=== PATIENT | female | born 1985 | race Caucasian/White ===

== ENCOUNTER 2020-04-04 14:46 | Outpatient (CLI) | payer OTHER, SELFPAY ==
[2020-04-04 15:09] LABS: Hematocrit 38.7 % (35.0-49.0); Hemoglobin 12.8 g/dL (12.0-15.0); Mean Corpuscular HGB Conc 33.1 g/dL (32.0-36.0); Mean Corpuscular Hemoglobin 29.7 pg (27.0-31.0); Mean Corpuscular Volume 89.8 fL (78.0-102.0); Mean Platelet Volume 9.6 fl (9.2-11.8); Platelet Count Result 216 K/mm3 (150-420); Red Blood Count 4.31 M/mm3 (4.20-5.40); Red Cell Distribution Width 12.6 % (11.6-14.4); White Blood Count 6.3 K/mm3 (4.8-10.8)
[2020-04-04 15:50] LABS: Alanine Aminotransferase 24 U/L (14-59); Albumin Level 4.1 g/dL (3.4-5.0); Alkaline Phosphatase 50 U/L (46-116); Anion Gap 11 mmol/L (8-16); Aspartate Amino Transferase 18 U/L (15-37); Bilirubin,Total 0.3 mg/dL (0.00-1.00); Blood Urea Nitrogen 18 mg/dL (7-18); Calcium 8.9 mg/dL (8.5-10.1); Carbon Dioxide 26 mmol/L (21-32); Chloride 102 mmol/L (98-108); Estimated Glomerular Filt Rate > 60; Glucose 95 mg/dL (70-99); Osmolality Calculated 289 mOsm/kg (285-295); Potassium 4.1 mmol/L (3.5-5.1); Sodium 139 mmol/L (136-145); Thyroid Stimulating Hormone 1.15 uIU/mL (0.36-3.74); Total Protein 8.1 g/dL (6.4-8.2)
== END 2020-04-04 14:47 | disposition home or self-care (01) ==
LOC: CHSLAB 14:49
PROVIDERS: PCP Physician Assistant; Visit Provider Physician Assistant
DX: R53.82 Chronic fatigue, unspecified (principal)
CPT/HCPCS: 36415; 80053; 84443; 85027

== ENCOUNTER 2021-02-21 01:52 | Day surgery (SDC) | payer OTHER, SELFPAY ==
[2021-02-15 14:05] VITALS: BMI 25.3
[2021-02-21] VITALS (10 sets, daily range): BP systolic 85–128; BP diastolic 60–75; PULSE 61–100; RESP 12–18; TEMP 36.2–36.4; O2SAT 95–100
[2021-02-21] MEDS: LACTATED RINGERS 1,000 ML 30 ML IV CONT (06:50)
[2021-02-21] MEDS: KETOROLAC 15 MG/ML VIAL (*BKC) IV PUSH (06:52)
[2021-02-21] MEDS: ACETAMINOPHEN 500 MG TABLET 1000 MG PO (06:52)
--- NOTE | 2021-02-21 07:11 | WPDANESEPPF ---
Anes - Initial Pre Proc Eval Procedure: Operation Date: 02/21/21 07:30 Proposed Procedures p Laparoscopic Left Ovarian Cystectomy - Ingrid Ramírez MD Date/Time: 02/21/21 07:11 Surgeon: Ingrid Ramírez MD Pre Op Diagnosis: hemorrhaghic cyst of ovary Patient Data Age: 35 Gender: F Height: 1.64 m Weight: 68 kg Allergies Allergy/AdvReac Type Severity Reaction Status Date / Time Sulfa (Sulfonamide Allergy Swelling Verified 02/15/21 13:59 Antibiotics) Home Medications Medication Instructions Recorded Confirmed Type amitriptyline 25 mg PO HS 02/15/21 02/15/21 History buspirone 5 mg PO BID 02/15/21 02/15/21 History methadone 42 mg PO DAILY 02/15/21 02/15/21 History Patient hx anesthesia problems: none Family hx anesthesia problems: none Results Review: All pre-operative results and documents have been reviewed as part of the pre-operative evaluation. [facility] Past Medical History Medical History Opioid dependence Family History Family History Father Diabetes mellitus Family history of hypercholesterolemia Social History Social History Smoking packs per day: 1 Smoking cigarettes per day: 20.0 Years smoked: 11 Smoking pack-years: 11.00 Smoking status: Current every day smoker Tobacco type: cigarettes Alcohol intake: never Substance use: former Substance use type: heroin Other substance usage details: USED HEROIN OFF AND ON FOR 6-7 YEARS---TAPERING OFF METHADONE NOW Last use: 02/04/15 Living arrangements: with family Additional living arrangements comments: DAUGHTER Spiritual care concerns: No Anes - Eval Final PreProcedure Day of Procedure 02/21/21 07:11 Patient weight: normal Heart: regular rate and rhythm Lungs: decreased breath sounds Airway: Mallampati scale class III Neurological: alert and oriented Last oral intake: >/= 8 hours ASA classification: III Emergent: no Anesthetic plan: proceed Anesthesia type and monitoring: general ETT and standard monitoring Results Review: All pre-operative results and documents have been reviewed as part of the pre-operative evaluation. Informed Consent: The patient's anesthetic plan and its attendant risks and benefits were discussed with the patient/family/POA. Questions were solicited and answers provided to the satisfaction of the patient/family/POA.
--- NOTE | 2021-02-21 07:16 | WPDHPUPDATE1 ---
History and Physical Update Update Date/Time: 02/21/21 07:16 History and Physical has been reviewed, including an updated exam of the patient. There are NO changes in the patient's condition. Risks, benefits, and alternatives have been discussed and questions answered. Patient agrees to proceed with procedure.
[2021-02-21] MEDS: SCOPOLAMINE 1.5 MG PATCH TRANSDERM (07:24)
--- NOTE | 2021-02-21 08:15 | W.PM.PROC2 ---
Procedure Note - Detailed Date of Procedure 02/21/21 Pre-op Diagnosis hemorrhaghic cyst of ovary Post-op Diagnosis same (Pelvic lesion-likely endometriosis) Procedure Performed Left Ovarian Cystectomy, fulguration of endometriosis. Surgeon Ingrid Ramírez MD Anesthesia general Indications Pelvic pain Findings deep posterior cul de sac and pelvic wall lesions - likely endometriosis left ovarian cyst Description of Procedure The patient was taken to the operating room. She was prepped and draped in the dorsal lithotomy position after induction general anesthesia. A 5 mm incision was made with a scalpel on the abdominal skin in the left upper quadrant of the abdomen. A 5 mm trocar was inserted into the intra-abdominal cavity under direct visualization the scope. In the same fashion a 5 mm left lower quadrant trocar was inserted and a 5 mm infraumbilical trocar was insert. Resection of left ovarian cyst was performed. Was done with sharp and blunt dissection cut surface was cauterized. Fulguration of a deep posterior cul-de-sac lesion was performed. Also, on the right pelvic sidewall near the ureter a small hemorrhagic lesion was cauterized there to. It was fulgurated with bipolar cautery as was the posterior cul-de-sac lesion. The pelvis was irrigated. The pneumoperitoneum was reduced. The trocars were removed. Skin was closed with subcuticular 4 micro. The patient's incisions were covered with Dermabond. She was taken recovery room in stable condition. Sponge lap and needle counts were correct x2. Estimated Blood Loss 10 Pathology yes Complications No immediate complications Condition stable Disposition same day
[2021-02-21] MEDS: HYDROmorphone HCL INJ (*CRX) 1 MG/ML SYR IV PUSH ×4 (08:43→09:28)
[2021-02-21] MEDS: oxyCODONE HCL (*CRX) 5 MG TAB IR PO (09:59)
== END 2021-02-21 10:47 | disposition home or self-care (01) ==
PROVIDERS: PCP Physician Assistant; Visit Provider Obstetrics & Gynecology
PROC: (CPT 49320; principal; 2021-02-21 07:30)
DX: N83.02 Follicular cyst of left ovary (principal); N73.6 Female pelvic peritoneal adhesions (postinfective); N80.3 Endometriosis of pelvic peritoneum; F11.20 Opioid dependence, uncomplicated; F17.210 Nicotine dependence, cigarettes, uncomplicated
CPT/HCPCS: 58662; 88305; A9270; J1100; J1170; J1885; J2250; J2270; J2405; J2704; J2710; J7030; J7120

== ENCOUNTER 2022-03-28 20:13 | Emergency (ER) | payer OTHER, SELFPAY ==
[2022-03-28 20:40] VITALS: BP 111/61; PULSE 75; RESP 16; TEMP 37; O2SAT 99
--- NOTE | 2022-03-28 21:31 | ED.DENTAL ---
HPI - Dental/Oral General Chief complaint: Dental/Oral Stated complaint: dry socket Time Seen by Provider: 03/28/22 20:16 Source: patient and RN notes reviewed Mode of arrival: ambulatory Limitations: no limitations History of Present Illness Complaint: tooth pain Location: Tooth # (32) Onset (ago): day(s) (2) Duration: constant Severity: mild Severity scale (1-10): 5 Relieving factors: NSAIDs Exacerbating factors: chewing Context: history of dental caries Treatment prior to arrival: none Related Data Home Medications Medication Instructions Recorded Confirmed amoxicillin 500 mg capsule 500 mg PO BID 03/28/22 03/28/22 buspirone 10 mg tablet 10 mg PO DAILY 03/28/22 03/28/22 Allergies Allergy/AdvReac Type Severity Reaction Status Date / Time No Known Allergies Allergy Verified 03/28/22 21:04 Review of Systems Review of Systems: All systems reviewed & are unremarkable except as noted in HPI and below Constitutional: Constitutional: Reports no additional constitutional complaints Eyes: Eyes: Reports no additional eye complaints ENT: Reports system reviewed and no additional complaints, except as documented Cardiovascular: Cardiovascular: Reports no additional cardiovascular complaints Respiratory: Respiratory: Reports no additional respiratory complaints Gastrointestinal: Gastrointestinal: Reports no additional gastrointestinal complaints Genitourinary: Genitourinary: Reports no additional female genitourinary complaints Musculoskeletal: Musculoskeletal: Reports no additional musculoskeletal complaints Integumentary/Breasts: Skin/Breast: Reports system reviewed and no additional complaints, except as docu Neurologic: Reports system reviewed and no additional complaints, except as documented Psychiatric: Psychiatric: Reports no additional psychiatric complaints Endocrine: Endocrine: Reports no additional endocrine complaints Hematologic/Lymphatic: Hematologic/Lymphatic: Reports no additional hematologic/lymphatic complaints Allergic/Immunologic: Allergic/Immunologic: Reports no additional allergic/immunologic complaints [facility] Past Medical History Medical History (Updated 03/29/22 @ 07:30 by Von Chaparro MD) Dry tooth socket Exam Const: General: healthy appearing, no acute distress and well nourished Nutritional Appearance: well nourished Orientation/consciousness: patient oriented x3 Limitations: no limitations HENMT: Head: normal to inspection Ears: external ears normal, TM's normal bilaterally and EAC's normal Face/Nose/Sinus: Normal external nose present, Normal nares present, normal facial exam and sinuses nontender Face and sinus: normal facial exam and sinuses nontender Mouth: Yes Normal oral and palatal mucosa present and Yes moist mucous membranes Teeth and gingiva: dentition normal Throat: posterior oropharynx normal Other: #32 with no acute gum swelling, redness or pus. Eyes: Conjunctivae: conjunctivae normal Pupils: Equal, round and reactive pupils present EOM: EOMs intact bilaterally Neck: Neck: normal visual inspection, no lymphadenopathy and no meningeal signs Chest: Chest palpation & inspection: normal inspection of the chest Resp: Effort & Inspection: normal respiratory effort Auscultation: clear to auscultation bilaterally Cardio: Rate: regular rate Rhythm: regular rhythm GI: GI Palp: Yes Soft to palpation and No Tenderness to palpation present (GI) Auscultation: normal bowel sounds : General: Yes bladder normal to palpation and Yes no CVA tenderness Bimanual exam- vagina & uterus: bladder normal to palpation Back/Spine/Pelvis: Back: no CVA tenderness Skin: General skin exam: normal color Rashes: no rashes Wounds: no wounds Neuro: General: patient oriented x3, moves all extremities, no meningeal signs, no focal motor deficits and CN's II-XI intact bilaterally Cranial nerves: Yes Equal, round and reactive pupils present and Yes Nystagmus not
[2022-03-28 21:45] VITALS: BP 110/62; PULSE 70; RESP 16; O2SAT 100
--- NOTE | 2022-03-28 21:48 | PC.NURSE ---
PT TOOK 600MG IBU AND A TYLENOL @ 2000 TONIGHT, NO MEDICATIONS ADMINISTERED DURING VISIT.
== END 2022-03-28 21:45 | disposition home or self-care (01) ==
PROVIDERS: Emergency Provider Emergency Medicine; PCP Physician Assistant
DX: K08.89 Other specified disorders of teeth and supporting structures (principal)
CPT/HCPCS: 99283

== ENCOUNTER 2024-08-03 00:25 | Day surgery (SDC) | payer OTHER, SELFPAY ==
--- NOTE | 2024-07-12 16:02 | SUR.PREOP ---
Addendum entered by Chirag Mao RN 07/27/24 10:40: Patient says no changes to health history since previous interview. Informed to be here at 0700 on 08-03-2024 for surgery at 0900. All other instructions the same. Original Note: Report to the Outpatient Waiting Room, entrance under the green pavilion located off [facility], at time 1100 on date 07/22/24. Planned Procedure Time: 1300.? Time changes happen often and if your time is changed the preop area will call you the afternoon before. - You and your visitor will be asked to self-screen and do not enter if you have any COVID symptoms. Please call surgeon if you need to reschedule. - A mask is optional within the hospital at this time. Patients may have clear liquids (water, carbonated beverages, clear teas, apple juice) until 3 hours prior to surgery with a maximum of 20 ounces. - NO CLEAR LIQUIDS AFTER 1000 - No food from midnight until time of surgery and no smoking, or chewing tobacco (or any form of nicotine). No chewing gum, candy or mints. - Infants may have breast milk until 4 hours before surgery, formula 6 hours prior to surgery. - Children will be allowed to drink immediately following surgery.? If applicable, please bring a bottle or sippy cup to assist with drinking. Juice, water, soda, and popsicles are readily available.? For infants on formula, please bring formula the day of surgery.? Pacifiers are allowed. Take only the following medications with a SIP of water on the morning of surgery: EXCITALOPRAM, HYDROCODONE DO NOT STOP ANY OF YOUR OTHER PRESCRIPTION MEDICATIONS PRIOR TO SURGERY EXCEPT THE FOLLOWING Hold all vitamins and supplements for 3 days per anesthesiologist. Medications to discontinue per physician VITAMINS & SUPPLEMENTS Date to take last dose 07/18/24 Please no make-up, nail frisian, hairspray, perfume, deodorant, or body powder the day of surgery.? No jewelry (including any body piercings) or valuables the day of surgery, leave them at home.? Please take a shower or bath the night before, or the morning of, surgery with an antibacterial soap.? Wear comfortable, loose fitting clothing.? Children are encouraged to wear pajamas. - Jewelry must be removed prior to entering the operating room.? Rings and piercings that are not removed may be cut off. - The hospital will not accept responsibility for valuables.? - Please leave all valuables, including medications, at home the day of surgery. If you are going home after surgery, a licensed class a regional drivers must drive you home.? - NO public transportation without another adult if you receive anesthesia. - We recommend that an adult stay with you for 24 hours following discharge. - We also recommend that you do not drive, make important decision, drink alcoholic beverages, or take any drugs that were not prescribed by your health care provider for at least 24 hours after your discharge time. For Pediatric surgeries, we recommend two adults accompany the child home. Follow any additional instructions given to you from your surgeon. Telephone instructions given to PAT PEDRAZA and asked if any additional questions and then verbalized understanding. Patient advised to call surgeon office or pre surgery nurse liaison [phone] if any additional questions.
[2024-07-12 16:13] VITALS: BMI 25.4
--- OUTSIDE RECORDS SUMMARY | 2024-07-22 00:33 | XMS_ITS | Clinical Summary ---
Author Organization [facility] Address [facility] [place] [address] Care Team Providers Care Seismograph Computer Name Role Phone Unavailable Primary Care Provider Unavailabl e Social History Tobacco Use Types Packs/Day Years Used Date Smoking Tobacco: Never Assessed Comments Unknown Sex and Gender Information Value Date Recorded Sex Assigned at Not on file Legal Sex Female 8:59 PM ASSISTANT SITE MANAGER Gender Identity Not on file Sexual Orientation Not on file Last Filed Vital Signs Vital Sign Reading Time Taken Comments Blood Pressure 112/70 07/20/2016 1:46 PM ASSISTANT SITE MANAGER Pulse 88 07/20/2016 1:46 PM ASSISTANT SITE MANAGER Temperature - - Respiratory Rate - - Oxygen Saturation - - Inhaled Oxygen Concentration - - Weight 63.5 kg (140 lb) 07/20/2016 1:46 PM ASSISTANT SITE MANAGER Height 165.1 cm (5' 5 ) 07/20/2016 1:46 PM ASSISTANT SITE MANAGER Body Mass Index 23.3 07/20/2016 1:46 PM ASSISTANT SITE MANAGER Plan of Treatment Health Maintenance Due Date Last Done Comments Cervical Cancer Screening Pa p Smear (Age 30 to 64) Every 3 Years 1987 Annual Physical 10/18/1990 Hepatitis C 10/18/2005 DTaP, Tdap and Td Vaccines ( 1 - Tdap) 10/18/2006 Hepatitis B Vaccines (1 of 3 - 19+ 3-dose series) 10/18/2006 Cervical Cancer Screening Pa p with HPV Testing (Age 30 to 64) Every 5 Years 10/18/2017 Cervical Cancer Screening with HPV 10/18/2017 COVID-19 Vaccine ( - 2023-2 5 season) 2024 Influenza Adult (#1) 2024 HPV Vaccines Aged Out No longer eligi ble based on patient's age to complete this topic Meningococcal B Vaccine Aged Out No l onger eligible based on patient's age to complete this topic Meningococcal Vaccine Aged Out No lorenza morena eligible based on patient's age to complete this topic Pneumococcal Vaccine: Pediat rics (0 to 5 Years) and At-Risk Patients (6 to 64 Years) Aged Out No longer eligible b ased on patient's age to complete this topic RSV Immunizations Under 20 Months Aged Out No longer eligible based on patient's age to complete this topic Advance Directives Documents on File Type Date Recorded Patient Leather Toggler Expl anation Advance Directives and Living Will 03/08/2014 12:00 AM ADVANCED DIRECTIVES
--- OUTSIDE RECORDS SUMMARY | 2024-07-22 00:34 | XMS_ITS | Clinical Summary ---
Author Organization [facility] Address [address] [place] [address] Care Team Providers Care Chemical Engineering Teacher Name Role Phone Davy Eugene Primary Care Provider [phone] Allergies Active Allergy Reactions Criticality Noted Date Comments Cephalexin Nausea only High 06/13/2020 Sulfa (Sulfonamide Antibiotics) Unknown 05/19 Sulfamethoxazole-Trimethoprim Rash Medium 2020 Medications fluticasone propionate (FLONASE) 50 mcg/actuation nasal spray Administer 2 sprays into each nostril daily 16 g 0 Active Additional Information Patient not taking.Reported on 06/13/2020 methylPREDNISol one (Medrol, Jeremiah,) 4 mg DosepackIndicat ions:Anti-infla mmatory follow package directions 1 packet 1 Active busPIRone (BUSPAR) 10 mg tablet Take 1 tablet (10 mg total) by mouth 2 (two) times a day Active clindamycin (CLEOCIN) 300 mg capsule Take 1 capsule (300 mg total) by mouth 3 (three) times a day Active estradiol-proge sterone 1-100 mg capsule Take 1 capsule every day by oral route. 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 Cephalalgia 01/26/2015 Encounters Date Type Department Care Team Description 05/26/2024 3:14 PM SENIOR BUSINESS ARCHITECT - 05/26/2024 11:59 PM SENIOR BUSINESS ARCHITECT Hospital Encounter [facility] [address] [place] [address] Pelvic and perineal pain Discharge Disposition: Discharge to home or self care from Last 3 Months Medical History Medical History Date Comments Allergic rhinitis UTI (urinary tract infection) Social History Tobacco Use Types Packs/Day Years Used Date Smoking Tobacco: Never Tobacco Cessation:Counseling Given: Not Answered Alcohol Use Standard Drinks/Week Comments Never 0 (1 standard drink = 0.6 oz pur e alcohol) AUDIT-C Answer Date Recorded Frequency of Alcohol Consumption Never 05/13/2019 Average Number of Drinks Not on file 019 Frequency of Binge Drinking Not on file 04/18 Comments No Sex and Gender Information Value Date Recorded Sex Assigned at Not on file Legal Sex Female 11:49 PM SENIOR BUSINESS ARCHITECT Gender Identity Not on file Sexual Orientation Not on file Obstetrics History Last Filed Vital Signs Vital Sign Reading Time Taken Comments Blood Pressure 106/71 07/09/2023 2:06 PM SENIOR BUSINESS ARCHITECT Pulse 97 07/09/2023 2:06 PM SENIOR BUSINESS ARCHITECT Temperature 36.2 C (97.1 F) 07/09/2023 2:06 PM SENIOR BUSINESS ARCHITECT Respiratory Rate 20 12/06/2019 4:48 PM CDT Oxygen Saturation 96% 07/09/2023 2:06 PM SENIOR BUSINESS ARCHITECT Inhaled Oxygen Concentration - - Weight 64.4 kg (142 lb) 07/09/2023 2:06 PM SENIOR BUSINESS ARCHITECT Height 165.1 cm (5' 5 ) 07/09/2023 2:06 PM SENIOR BUSINESS ARCHITECT Body Mass Index 23.63 07/09/2023 2:06 PM SENIOR BUSINESS ARCHITECT Plan of Treatment Health Maintenance Due Date Last Done Comments Cervical Cancer Screening 1987 Depression Screening 1987 Varicella Vaccines (1 of 2 - 13+ 2-dose series) 10/18/2000 Hepatitis B Screening 10/18/2005 Regular Well Visit/Exam 18-64 10/18/2005 Pneumococcal vaccine <65 (1 of 2 - PCV) 10/18/2006 Covid-19 Vaccine (3 - 2023- season) 2024 10/03/2020, 09/05/2020 Influenza Vaccine (#1) 2024 02/29/2020 DTaP/Tdap/Td Vaccine (2 - Td or Tdap) 06/13/2025 06/13/2015 Hepatitis C Screening Completed 09/30/2016 , 09/05/2015, 02/05/2015, Additional history exists HPV Vaccines Aged Out No longer eligi ble based on patient's age to complete this topic Procedures Procedure Name Priority Date/Time Associated Diagnosis Comments US PELVIS W ENDOVAGINAL Schedule Routine, Read Routine (OP Routine) 05/26/2024 4:23 PM SENIOR BUSINESS ARCHITECT Pelvic and perineal pain HEPATITIS C RNA, QUANTITATIVE, PCR New Adm-Reg 09/30/2016 12:25 PM CDT from Last 3 Months or Most Recently Relevant to Health Maintenance Results * US Pelvis W Endovaginal (05/26/2024 4:23 PM SENIOR BUSINESS ARCHITECT) Anatomical Region Laterality Modality Pelvis N/A Ultrasound 05/27/2024 3:39 PM SENIOR BUSINESS ARCHITECT Narrative 05/27/2024 3:41 PM SENIOR BUSINESS ARCHITECT EXAM DESCRIPTION: US PELVIS W ENDOVAGINAL REASON FOR STUDY: R10.2 Pelvic pain on and off for a while. History of endometriosis. TECHNIQUE: Grayscale ultrasound of the pelvic contents was performed with transabdominal and transvaginal transducer. COMPARISON: None FINDINGS: UTERUS: The uterus is anteverted. The uterus is homogenous in echotexture and measures 7.8 x 5.3 x 4.1 cm. ENDOMETRIUM: The endometrium measures 0.4 cm in thickness. There is an intrauterine device noted in the endometrial canal at the level of the uterine fundus. There is a small amount of nonspecific free fluid noted in the endometrial canal. RIGHT OVARY: The right ovary measures 2.4 x 2.4 x 1.7 cm. There is documentation of color Doppler flow in the right ovary. There is a cyst in the right ovary measuring 2.4 x 2.4 x 1.7 cm. There are multiple additional follicles noted in the right ovary. LEFT OVARY: The left ovary measures 2.1 x 1.4 x 0.8 cm. There is documentation of color Doppler flow in the left ovary. There are multiple follicles noted in the left ovary. PELVIC FLUID: There is no evidence of free fluid in the pelvis. OTHER: No other significant findings. IMPRESSION: Right ovarian cyst measuring up to 2.4 cm. Small amount of nonspecific free fluid in the endometrial canal. Intrauterine device is noted in the endometrial canal at the level of the uterine fundus. THIS IS AN ELECTRONICALLY VERIFIED FINAL REPORT 05/27/2024 3:41 PM - Electronically signed by Smitha Malave D.O. PS: PS Report ID: [id number] Reading Location: [id number] Procedure Note Smitha Malave, DO - 05/27/2024 EXAM DESCRIPTION: US PELVIS W ENDOVAGINAL REASON FOR STUDY: R10.2 Pelvic pain on and off for a while. History of endometriosis. TECHNIQUE: Grayscale ultrasound of the pelvic contents was performed with transabdominal and transvaginal transducer. COMPARISON: None FINDINGS: UTERUS: The uterus is anteverted. The uterus is homogenous inechotexture and measures 7.8 x 5.3 x 4.1 cm. ENDOMETRIUM: The endometrium measures 0.4 cm in thickness. There is an intrauterine device noted in the endometrial canal at the level of theuterine fundus. There is a small amount of nonspecific free fluid noted in the endometrial canal. RIGHT OVARY: The right ovary measures 2.4 x 2.4 x 1.7 cm. There is documentation of color Doppler flow in the right ovary. There is a cystin the right ovary measuring 2.4 x 2.4 x 1.7 cm. There are multipleadditional follicles noted in the right ovary. LEFT OVARY: The left ovary measures 2.1 x 1.4 x 0.8 cm. There is documentation of color Doppler flow in the left ovary. There are multiple follicles noted in the left ovary. PELVIC FLUID: There is no evidence of free fluid in the pelvis. OTHER: No other significant findings. IMPRESSION: Right ovarian cyst measuring up to 2.4 cm. Small amount of nonspecific free fluid in the endometrial canal. Intrauterine device is noted in the endometrial canal at the level of the uterine fundus. THIS IS AN ELECTRONICALLY VERIFIED FINAL REPORT 05/27/2024 3:41 PM - Electronically signed by Smitha Malave D.O. PS: PS Report ID: [id number] Reading Location: [id number] us Davy [facility] PROCEDURES Final Resul t * Hepatitis C RNA, quantitative, PCR (09/30/2016 12:25 PM CDT) HCV RNA qn Undetected Undetected IUnits/mL SHAZIA BELL ([facility]) Comment: Result in log IU/mL is Undetected. ADDITIONAL INFORMATION The quantification range of this assay is 15 to 100,000,000 IU/mL (1.18 log to 8.00 log IU/mL). Testing was performed by the [employer] AmpliPrep/BRITTNEY TaqMan HCV Test, version 2.0 ([employer] Test Performed by: [place] [address] Blood specimen (specimen) 09/30/2016 12:25 PM CDT 09/30/2016 12:57 PM CDT Tesfaye Kumar MD LAB MICROBIOLOGY - GENERAL ORDERABLES Final Result SHAZIA RAY ([facility]) [address] [facility] Department [place] [address] from Last 3 Months or Most Recently Relevant to Health Maintenance Insurance [place] [facility] [place] [facility] Care Teams Chemical Engineering Teacher Relationship Specialty Start Date End Date Davy Eugene PA [address] [place] [address] PCP - General 09/30/16
--- OUTSIDE RECORDS SUMMARY | 2024-07-22 00:34 | XMS_ITS | Referral Summary ---
Author Organization [facility] Address [address] [place] [address] Care Team Providers Care Seat Cover Installer Name Role Phone Davy Eugene Primary Care Provider [phone] Encounters Date Type Department Care Team Description 05/26/2024 3:14 PM FISH CLEANER MACHINE TENDER - 05/26/2024 11:59 PM FISH CLEANER MACHINE TENDER Hospital Encounter [facility] [address] [place] [address] Pelvic and perineal pain Discharge Disposition: Discharge to home or self care from Last 3 Months Allergies Active Allergy Reactions Criticality Noted Date Comments Cephalexin Nausea only High 06/13/2020 Sulfa (Sulfonamide Antibiotics) Unknown 05/19 Sulfamethoxazole-Trimethoprim Rash Medium 2020 Medications fluticasone propionate (FLONASE) 50 mcg/actuation nasal spray Administer 2 sprays into each nostril daily 16 g 0 Active Additional Information Patient not taking.Reported on 06/13/2020 methylPREDNISol one (Medrol, Jeremiah,) 4 mg DosepackIndicat ions:Anti-infla mmatory follow package directions 1 packet Active busPIRone (BUSPAR) 10 mg tablet Take [...] disorder 01/26/2015 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 Cephalalgia 01/26/2015 Social History Tobacco Use Types Packs/Day Years [...] on file Legal Sex Female 11:49 PM FISH CLEANER MACHINE TENDER Gender Identity Not on file Sexual Orientation Not on file Last Filed Vital Signs Vital Sign Reading Time Taken Comments Blood Pressure 106/71 07/09/2023 2:06 PM FISH CLEANER MACHINE TENDER Pulse 97 07/09/2023 2:06 PM FISH CLEANER MACHINE TENDER Temperature 36.2 C (97.1 F) 07/09/2023 2:06 PM FISH CLEANER MACHINE TENDER Respiratory Rate 20 12/06/2019 4:48 PM CDT Oxygen Saturation 96% 07/09/2023 2:06 PM FISH CLEANER MACHINE TENDER Inhaled Oxygen Concentration - - Weight 64.4 kg (142 lb) 07/09/2023 2:06 PM FISH CLEANER MACHINE TENDER Height 165.1 cm (5' 5 ) 07/09/2023 2:06 PM FISH CLEANER MACHINE TENDER Body Mass Index 23.63 07/09/2023 2:06 PM FISH CLEANER MACHINE TENDER Plan of Treatment Not on file Procedures Procedure Name Priority Date/Time Associated Diagnosis Comments US PELVIS W ENDOVAGINAL Schedule Routine, Read Routine (OP Routine) 05/26/2024 4:23 PM FISH CLEANER MACHINE TENDER Pelvic and perineal pain HEPATITIS C RNA, QUANTITATIVE, PCR New Adm-Reg 09/30/2016 12:25 PM CDT from Last 3 Months or Most Recently Relevant to Health Maintenance Results * US Pelvis W Endovaginal (05/26/2024 4:23 PM FISH CLEANER MACHINE TENDER) Anatomical Region Laterality Modality Pelvis N/A Ultrasound 05/27/2024 3:39 PM FISH CLEANER MACHINE TENDER Narrative 05/27/2024 3:41 PM FISH CLEANER MACHINE TENDER EXAM DESCRIPTION: US PELVIS W ENDOVAGINAL REASON [...] Smitha Malave D.O. PS: PS Report ID: [id number] Reading Location: [id number] Procedure Note Smitha Malave, DO - 05/27/2024 [...] Smitha Malave D.O. PS: PS Report ID: [id number] Reading Location: [place] [address] Davy [facility]ORD[facility] US PROCEDURES Final Resul t * Hepatitis C RNA, quantitative, PCR (09/30/2016 12:25 PM CDT) Pathologist [facility] HCV RNA qn Undetected Undetected IUnits/mL [facility] ([facility]) Comment: Result in log IU/mL is Undetected. ADDITIONAL INFORMATION The quantification range of this assay is 15 to 100,000,000 IU/mL (1.18 log to 8.00 log IU/mL). Testing was performed by the [facility] AmpliPrep/BRITTNEY TaqMan HCV Test, version 2.0 ([employer] Test Performed by: [facility] - [address] [address] Blood specimen (specimen) 09/30/2016 12:25 PM CDT 09/30/2016 12:57 PM CDT Tesfaye Kumar MD LAB MICROBIOLOGY - GENERAL ORDERABLES Final Result [facility] ([employer] [address] [facility] [place] [address] from Last 3 Months or Most Recently Relevant to Health Maintenance Insurance [facility] Care Teams Seat Cover Installer Relationship Specialty Start Date End Date Davy Eugene PA [address] [place] [address] PCP - General 09/30/16
[2024-08-03] VITALS (7 sets, daily range): BP systolic 96–112; BP diastolic 52–74; PULSE 71–94; RESP 16–18; TEMP 36.1–36.6; O2SAT 95–99; BMI 26.0
--- OUTSIDE RECORDS SUMMARY | 2024-08-03 00:27 | XMS_ITS | Clinical Summary ---
Author Organization [facility] Address [facility] [place] [address] Care Team Providers Care Social And Political Studies Professor Name Role Phone Unavailable Primary Care Provider Unavailabl e Social History Tobacco Use Types Packs/Day Years Used Date Smoking Tobacco: Never Assessed Comments Unknown Sex and Gender Information Value Date Recorded Sex Assigned at Not on file Legal Sex Female 8:59 PM PEDIATRIC SURGEON Gender Identity Not on file Sexual Orientation Not on file Last Filed Vital Signs Vital Sign Reading Time Taken Comments Blood Pressure 112/70 07/20/2016 1:46 PM PEDIATRIC SURGEON Pulse 88 07/20/2016 1:46 PM PEDIATRIC SURGEON Temperature - - Respiratory Rate - - Oxygen Saturation - - Inhaled Oxygen Concentration - - Weight 63.5 kg (140 lb) 07/20/2016 1:46 PM PEDIATRIC SURGEON Height 165.1 cm (5' 5 ) 07/20/2016 1:46 PM PEDIATRIC SURGEON Body Mass Index 23.3 07/20/2016 1:46 PM PEDIATRIC SURGEON Plan of Treatment Health Maintenance Due Date [...] Documents on File Type Date Recorded Patient Gypsum Calciner Expl anation Advance Directives and Living Will 03/08/2014 12:00 AM ADVANCED DIRECTIVES
--- OUTSIDE RECORDS SUMMARY | 2024-08-03 00:27 | XMS_ITS | Data Portability ---
Author Organization [facility] Address [address] [place] [address] [place] [address] Care Team Providers Care Optical Dispenser Name Role Phone GREGG MARTE Primary Care Provider Assessment No assessment recorded. Plan of Treatment Reminders Order Date Submit Date Provider Last Modified By Organization Details Last Modified Time Details Appointments SURG Lap Ovarian Cystectom y 2024 09:00A Kasia RAMÍREZ MD Not available Not available Not available SURG POST OP 2024 01:00P Kasia RAMÍREZ MD Not available Not available Not available Lab urinalysi s, dipstick 2024 025 [email or web address] [facility], [address], [place], [address], 06/29/2024 11:37:20 unlisted lab - women's health swab plus, MANNY 2023 024 [facility] (Lab), [address], [place], [address], 02/13/2024 11:23:30 Referral None recorded. Procedures None recorded. Surgeries laparosco pic ovarian cystectom y (SURG) 2024 025 jess [facility], [address], [place], [address], 08/02/2024 09:51:34 Imaging US, transvagi nal 2024 025 [email or web address] [facility], [address], [place], [address], 07/12/2024 23:00:35 Medication Orders hydrocodo ne 5 mg-acetam inophen 325 mg tablet 2024 [id number], [address], [place], [place], [id number], 07/12/2024 12:43:51 fosfomyci n trometham ine 3 gram oral packet 2024 [id number], [address], [place], [place], [id number], 06/29/2024 10:43:52 clindamyc in 2 % vaginal cream 2023 [facility] #[id number], [address], [place], [place], [id number], 06/01/2024 14:34:45 Patient TargetsNo targets recorded. Patient InstructionsNo instructions recorded. Reason for Referral None Reported. Results Created Date Observation Date Name Description Value Unit Range Abnormal Flag Note LastModifiedBy Organization Detail LastModifiedTime 02/11/2002/11/2024 [facility] SWAB PLUS, MANNY bacterial vaginosis (bv), tma Positi ve negati ve abnormal Not Available [facility] (Lab) [address] [place], [address], 02/13/2024 11:23:30 02/11/20 24 02/11/2024 WOM[facility] 'S HEALT H SWAB PLUS, MANNY lakesha species, tma Negati ve negati ve Not Available [facility] (Lab) [address] [place], [address], 02/13/2024 11:23:30 02/11/20 24 02/11/2024 WOMEN 'S HEALT H SWAB PLUS, MANNY lakesha glabrata, tma Negati ve negati ve Not Available [facility] (Lab) [address], [place], [address], 02/13/2024 11:23:30 02/11/20 24 02/11/2024 [facility] trichomonas vaginalis, tma Negati ve negati ve Not Available [facility] (Lab) [address], [place], [address], 02/13/2024 11:23:30 02/11/20 24 02/11/2024 [facility] chlamydia trachomatis, PCR Negati ve negati ve Not Available [facility] (Lab) [address], [place], [address], 02/13/2024 11:23:30 02/11/20 24 02/11/2024 [facility] neisseria gonorrhoeae, PCR Negati ve negati ve Bacte rial vagin osis detec ts the follo wing bacte mariann assoc iated with bacte rial vagin osis (BV): Lacto bacil kassie (L. gasse ri, L. crisp atus and L. jense martha), Gardn erell a vagin cyndy, and Atopo bium vagin ae. A singl e quali tativ e resul t is repor lien base on instr ument softw are to deter mine BV posit jessica or negat jessica statu s. The [place] [facility] group tests for C. albic ans, C. tropi calis , C. parap rafa is, C. dubli niens is. Testi ng is perfo rmed using the Trans cript ion Media lien Ampli ficat ion metho d. Tests for [place] glabr efrain, Trich omona s vagin cyndy, Chlam ydia trach omati s, and Neiss eria gonor rhoea e are also inclu ded in this panel . Not Available [facility] (Lab) [address], [place], [address], 02/13/2024 11:23:30 06/29/19 25 06/29/2024 [facility] SWAB PLUS, MANNY bacterial vaginosis (bv), tma Negati ve negati ve Not Available [facility] (Lab) [address] [place], [address], 07/01/2024 01:44:56 06/29/19 25 06/29/2024 [facility] MANNY lakesha species, tma Negati ve negati ve Not Available [facility] (Lab) [address] [place], [address], 07/01/2024 01:44:56 06/29/19 25 06/29/2024 [facility] MANNY lakesha glabrata, tma Negati ve negati ve Not Available [facility] (Lab) [address], [place], [address], 07/01/2024 01:44:56 06/29/19 25 06/29/2024 [facility] MANNY trichomonas vaginalis, tma Negati ve negati ve Not Available [facility] (Lab) [address] [place], [address], 07/01/2024 01:44:56 06/29/19 25 06/29/2024 [facility] MANNY chlamydia trachomatis, PCR Negati ve negati ve Not Available [facility] (Lab) [address] [place], [address], 07/01/2024 01:44:56 06/29/19 25 06/29/2024 [facility] MANNY neisseria gonorrhoeae, PCR Negati ve negati ve Bacte rial vagin osis detec ts the follo wing bacte mariann assoc iated with bacte rial vagin osis (BV): Lacto bacil kassie (L. gasse ri, L. crisp atus and L. jense martha), Gardn erell a vagin cyndy, and Atopo bium vagin ae. A singl e quali tativ e resul t is repor lien base on instr ument softw are to deter mine BV posit jessica or negat jessica statu s. The [place] [facility] group tests for C. albic ans, C. tropi calis , C. parap rafa is, C. dubli niens is. Testi ng is perfo rmed using the Trans cript ion Media lien Ampli ficat ion metho d. Tests for [place] glabr efrain, Trich omona s vagin cyndy, Chlam ydia trach omati s, and Neiss eria gonor rhoea e are also inclu ded in this panel . Not Available [facility] (Lab) [address], [place], [address], 07/01/2024 01:44:56 06/29/1906/29/2024 CULTU RE: URINE result report SEE RESULT S BELOW Test: Cultu re: Urine Speci men Sourc e: Urine - Clean Catch Speci men Type: Urine Speci men Date: 2024 1344 Resul t Date: 20248 Resul t Statu s: Final resul t Abnor mal: No Resul ting Lab: [facility] [address] [facility] [address] Tel: CULTU RE ----- ----- ----- --- No growt h in 1 day (dete ction level of 10,00 0 colon ies / ml.) Not Available [facility] (Lab) [address], [place], [address], 07/01/2024 01:44:57 06/29/1906/29/2024 urina lysis , dipst ick Leukocytes + Not Available [facility] [address], [place], [address], 06/29/2024 11:36:26 06/29/19 25 06/29/2024 urina lysis , dipst ick Protein + Not Available [address] [place], [address], 06/29/2024 11:36:26 06/29/19 25 06/29/2024 urina lysis , dipst ick pH 8 Not Available [facility] [address], [place], [address], 06/29/2024 11:36:26 06/29/19 25 06/29/2024 urina lysis , dipst ick Blood + Not Available [facility] [address], [place], [address], 06/29/2024 11:36:26 06/29/19 25 06/29/2024 urina lysis , dipst ick Specific [place] 1.010 Not Available [facility] emilia [address], [place], [address], 06/29/2024 11:36:26 06/29/19 25 06/29/2024 urina lysis , dipst ick Ketone - Not Available [facility] [address], [place], [address], 06/29/2024 11:36:26 06/29/19 25 06/29/2024 urina lysis , dipst ick Glucose normal Not Available [facility] [address], [place], [address], 06/29/2024 11:36:26 06/29/19 25 06/29/2024 urina lysis , dipst ick Appearance Cloudy [facility] Available [facility] [address], [place], [address], 06/29/2024 11:36:26 06/29/19 25 06/29/2024 urina lysis , dipst ick Color dark yellow Not Available [facility] [address], [place], [address], 06/29/2024 11:36:26 07/19/19 25 07/18/2024 OVA 1 scan result See Glory da silva Result Not Available [facility] (Lab) [address], [place], [address], 07/22/2024 14:49:01 05/30/19 25 05/26/2024 US, pelvi s, compl ete No observ ation record ed. [email or web address] [facility] [address], [place], [address], 05/30/2024 21:51:01 07/12/19 25 07/12/2024 US, trans vagin al No observ ation record ed. [email or web address] [facility] [address], [place], [address], 07/12/2024 13:48:26 07/12/19 25 07/12/2024 US, trans vagin al No observ ation record ed. [email or web address] [address], [place], [address], 07/15/2024 15:03:40 Result Notes None recorded. Problems Name Problem SNOMED Code Status Onset Date Resolution Date Notes Provider Name and Address Organization Details Recorded Time Amenorrh ea 45274094 Completed 201401/22/2021 Absence of menstrua tion;Rec orded Elsewher e: No [facility] S ource: EHR [facility] carolin: N Queta ce ID: 0001 Jonatan lable Time: 11:00:00 AM Martina Campos [facility] 17:06:15 Syphilis test finding [id number] Completed 201701/22/2021 Encounte r for STD screenin g;Record ed Elsewher e: No Locat ion: [facility] S ource: EHR [facility] carolin: N Queta ce ID: 0001 Jonatan lable Time: 11:00:00 AM Martina Campos [facility] 17:07:07 Maternal drug exposure [id number] Completed 201501/22/2021 Drug use complica ting pregnanc y, third trimeste r;Record ed Elsewher e: No Locat ion: Avelina rangel [facility] S ource: EHR [facility] carolin: N Practi ce ID: 0001 Jonatan lable Time: 03:00:00 PM Martina lares, [facility] 1 17:06:43 Normal pregnanc y in multigra jewell [id number] Completed 201501/22/2021 Encounte r for supervis ion of other normal pregnanc y, third trimeste r;Record ed Elsewher e: No Locat ion: Avelina rangel [facility] S ource: EHR [facility] carolin: N Practi ce ID: 0001 Jonatan lable Time: 10:45:00 AM Martina Campos [facility] 1 17:06:45 Viral hepatiti s C [id number] Completed 201501/22/2021 Hepatiti s C;Record ed Elsewher e: No Locat ion: Avelina rangel [facility] S ource: EHR [facility] carolin: N Practi ce ID: 0001 Jonatan lable Time: 11:45:00 AM Martina Campos [facility], [facility] 1 17:07:19 Speciali zed medical examinat ion Completed 201401/22/2021 ROUTINE REINFORCING STEEL ERECTOR EXAMINAT ION;Linwood rded Elsewher e: No Locat ion: Courtney juan carlos [facility] S ource: EHR [address] [address] carolin: N Practi ce ID: 0001 Jonatan lable Time: 11:00:00 AM Martina Campos [facility] 1 17:07:03 Gestatio n period, 35 weeks [id number] Completed 201501/22/2021 35 weeks gestatio n of pregnanc y;Record ed Elsewher e: No Locat ion: [facility] juan carlos [facility] S ource: EHR [facility] carolin: N Practi ce ID: 0001 Jonatan lable Time: 10:30:00 AM Martina lares [facility] 1 17:06:33 Pregnanc y, childbir th and puerperi um finding Completed 201401/22/2021 Encounte r for supervis ion of normal first pregnanc y, second trimeste r;Record ed Elsewher e: No Locat ion: [facility] S ource: EHR [address] [address] carolin: N Matthewti ce ID: 0001 Jonatan lable Time: 01:45:00 PM Martina Campos [facility] 1 17:06:52 Pelvic and perineal pain [id number] Completed 201401/22/2021 Pelvic pain;Rec orded Elsewher e: No Locat ion: [facility] S ource: [facility] carolin: N Matthewti ce ID: 0001 Jonatan lable Time: 01:45:00 PM Martina Campos [facility] 17:06:[address] Concept Completed 201501/22/2021 Encntr for tea taster exam (general ) (routine ) w/o abn findings ;Recorde d Elsewher e: No Locat ion: [facility] S ource: EHR [facility] carolin: N Matthewti ce ID: 0001 Jonatan lable Time: 11:30:00 AM Martina Campos [facility] 1 17:07:00 Speciali zed medical examinat ion Completed 201401/22/2021 Other specifie d chlamydi al diseases ;Recorde d Elsewher e: No Locat ion: [facility] S ource: EHR [facility] carolin: N Matthewti ce ID: 0001 Jonatan lable Time: 11:00:00 AM Martina Campos [facility] 1 17:07:05 Primigra jewell [id number] Completed 201401/22/2021 Supervis ion of normal first pregnanc y;Record ed Elsewher e: No Locat ion: [facility] S ource: EHR [facility] [facility] carolin: N Practi ce ID: 0001 Jonatan lable Time: 11:00:00 AM Martina Campos [facility] [address] 17:06:[address] Concept Completed 201501/22/2021 Nexplano n;Record ed Elsewher e: No Locat ion: [facility] S ource: EHR [facility] [facility] carolin: N Practi ce ID: 0001 Jonatan lable Time: 10:15:00 AM Martina Campos [facility] 1 17:07:02 Breast lump [id number] Completed 201401/22/2021 Unspecif ied lump in breast;R ecorded Elsewher e: No Locat ion: [facility] S ource: EHR [facility] carolin: N Practi ce ID: 0001 Jonatan lable Time: 11:00:00 AM Martina Campos [facility] 1 17:06:20 Blood leukocyt e number above referenc e range [id number] Completed 201701/22/2021 Elevated white blood cell count, unspecif ied;Linwood rded Elsewher e: No Locat ion: [facility] S ource: EHR [facility] carolin: N Practi ce ID: 0001 Jonatan lable Time: 03:00:00 PM Martina Campos [facility] 1 17:06:38 Pregnanc y, childbir th and puerperi um finding Completed 201401/22/2021 Encounte r for supervis ion of normal first pregnanc y, third trimeste r;Record ed Elsewher e: No Locat ion: [facility] S ource: EHR [place] [facility] carolin: N Practi ce ID: 0001 Jonatan lable Time: 02:15:00 PM Martina Campos [facility] 1 17:06:53 Gestatio n period, 36 weeks [id number] Completed 201501/22/2021 36 weeks gestatio n of pregnanc y;Record ed Elsewher e: No Locat ion: [facility] juan carlos [facility] S ource: EHR [place] carolin: N Practi ce ID: 0001 Jonatan lable Time: 03:00:00 PM Martina Campos [facility], [facility] 1 17:06:34 Pregnanc y test negative [id number] Completed 201701/22/2021 Encounte r for pregnanc y test, result negative ;Recorde d Elsewher e: No Locat ion: [facility] S ource: EHR [facility] carolin: N Practi ce ID: 0001 Jonatan lable Time: 08:45:00 AM Martina Campos [facility] 17:06:[address] Concept Completed 201401/22/2021 Encntr for general adult medical exam w/o abnormal findings ;Recorde d Elsewher e: No Locat ion: [facility] S ource: EHR [facility] [facility] carolin: N Practi ce ID: 0001 Jonatan lable Time: 01:45:00 PM Martina Campos [facility] 17:06:59 Clinical finding Completed 201801/22/2021 Presence of (intraut erine) contrace ptive device;R ecorded Elsewher e: No Locat ion: [facility] S ource: EHR [facility] [facility] carolin: N Practi ce ID: 0001 Jonatan lable Time: 07:46:55 PM Martina Campos [facility] 1 17:06:23 Gestatio n period, 37 weeks [id number] Completed 201501/22/2021 37 weeks gestatio n of pregnanc y;Record ed Elsewher e: No Locat ion: [facility] S ource: EHR [facility] [facility] carolin: N Practi ce ID: 0001 Jonatan lable Time: 11:15:00 AM Martina Campos null, [facility] 1 17:06:36 Ultrason ography Completed 201401/22/2021 Antenata l screenin g for malforma tion using ultrason ics;Linwood rded Elsewher e: No Locat ion: [facility] S ource: EHR [facility] carolin: N Practi ce ID: 0001 Jonatan lable Time: 11:30:00 AM Martina Campos [facility] 1 17:07:13 Antenata l screenin g Completed 201401/22/2021 Antenata l screenin g for malforma tion using ultrason ics;Linwood rded Elsewher e: No Locat ion: [facility] S ource: EHR [facility] [facility] carolin: N Matthewti ce ID: 0001 Jonatan lable Time: 11:30:00 AM Martina Campos [facility] 17:06:17 Congenit al malforma tion [id number] Completed 201401/22/2021 Antenata l screenin g for malforma tion using ultrason ics;Linwood rded Elsewher e: No Locat ion: [facility] S ource: EHR [facility] [facility] car[place]: N Matthewti ce ID: 0001 Jonatan lable Time: 11:30:00 AM Martina Campos [facility] 1 17:06:24 Lochia finding Completed 201501/22/2021 Encounte r for routine postpart um follow-u p;Record ed Elsewher e: No Locat ion: [facility] S ource: EHR [facility] carolin: N Matthewti ce ID: 0001 Jonatan lable Time: 11:45:00 AM Martina Campos [facility] 17:06:41 Atypical squamous cells of undeterm ined signific ance on cervical Papanico laou smear [id number] Completed 201501/22/2021 Atyp squam cell of undet signfc cyto smr crvx (ASC-US) ;Recorde d Elsewher e: No Locat ion: [facility] S ource: EHR [facility] carolin: Vipul Castroti ce ID: 0001 Jonatan lable Time: 01:36:11 PM Martina Campos [facility] 1 17:06:18 Venereal disease screenin g Completed 201401/22/2021 Screenin g examinat ion for venereal disease; Recorded Elsewher e: No Locat ion: [facility] S ource: EHR [facility] carolin: N Matthewti ce ID: 0001 Jonatan lable Time: 11:00:00 AM Martina Campos [facility] 17:07:17 Acute vaginiti s [id number] Completed 201701/22/2021 Acute vaginiti s;Record ed Elsewher e: No Locat ion: [facility] S ource: EHR [facility] carolin: N Matthewti ce ID: 0001 Jonatan lable Time: 08:45:00 AM Martina Campos [facility] 17:06:12 Vaginola bial hernia Completed 201701/22/2021 Other specifie d noninfla mmatory disorder s of vagina;R ecorded Elsewher e: No Locat ion: [facility] S ource: EHR [facility] carolin: Vipul Castroti ce ID: 0001 Jonatan lable Time: 08:45:00 AM Martina Campos [facility], [facility] 17:07:15 Pregnanc y test positive [id number] Completed 201401/22/2021 Positive Pregnanc y Test;Pra ctice ID: 0001 Martina Campos [facility] 17:06:50 Complica tion of pregnanc y, childbir th and/or puerperi um [id number] Completed 201401/22/2021 Oth diseases and conditio ns compl preg/chl dbrth;Pr actice ID: 0001 Martina lares, [facility] 17:07:12 Gestatio n period, 34 weeks [id number] Completed 201501/22/2021 34 weeks gestatio n of pregnanc y;Practi ce ID: 0001 Martina lares, [facility] 17:06:32 Pregnanc y, childbir th and puerperi um finding Completed 201501/22/2021 Oth pregnanc y related conditio ns, third trimeste r;Practi ce ID: 0001 Martina lares, [facility] 17:06:21 Gestatio n period, 30 weeks [id number] Completed 201501/22/2021 30 weeks gestatio n of pregnanc y;Practi ce ID: 0001 Martina lares, [facility] 17:06:30 False labor at or after 37 complete d weeks of gestatio n [id number] Completed 201501/22/2021 False labor at or after 37 complete d weeks of gestatio n;Practi ce ID: 0001 Martina lares, [facility] 17:06:26 Term pregnanc y delivere d [id number] Completed 201501/22/2021 Encounte r for full-ter m uncompli cated delivery ;Practic e ID: 0001 Martina lares, [facility] 17:07:08 Single live [id number] Completed 201501/22/2021 Single live ;Pr actice ID: 0001 Martina lares, [facility] 17:06:57 Finding of pattern of menstrua l cycle [id number] Completed 201701/22/2021 Excessiv e and frequent menstrua tion with irregula r cycle;Pr actice ID: 0001 Martina Campos [facility], [facility] 17:06:28 Trichomo nal vulvovag initis [id number] Completed 201701/22/2021 Trichomo nal vulvovag initis;P ractice ID: 0001 Martina lares, [facility] 17:07:10 Infectio n screenin g Completed 201701/22/2021 Encounte r for screenin g for oth infec/pa rastc diseases ;Recorde d Elsewher e: No [facility] S ource: EHR [facility] carolin: N Practi ce ID: 0001 Jonatan lable Time: 02:45:00 PM [facility] 17:06:39 Problem Notes None recorded. Procedures Surgical History Date Name Laterality Status Provider Name and Address Organization Details Recorded Time 08/26/19 24 Date of Last Pap Smear completed Mildred Valencia [facility] 11/27/2023 11:49:25 06/07/19 22 IUD Insertion completed Carlota Davidson [facility] 06/07/2021 12:17:04 02/22/20 21 LAPAROSCOPIC OVARIAN CYSTECTOMY (SURG) completed Brittany Leon [facility] 02/22/2021 09:19:41 Imaging Results Imaging Date Name Status LastModified by Organization Details LastModified Time 05/26/2024 US, pelvis, complete completed [email or web address] [facility] [address] [place], [address], 05/30/2024 21:51:01 07/12/2024 US, transvaginal completed [email or web address], [place], [address], 07/12/2024 13:48:26 07/12/2024 US, transvaginal completed [email or web address] [address], [place], [address], 07/15/2024 15:03:40 Procedure Notes None recorded. Medical Equipment None Reported. Allergies Allergen ID Allergen Name Allergen Category Reaction Reaction Severity Criticality Documentation Date Start Date Code Code System Note Provider Name and Address Organization Details Recorded Time 11545 Macrobid medicatio n headache nausea vomiting moderate moderate moderate Not available 02/27/20212020 38004 1 RxNorm A Ruehrup [facility] 16:54:38 23876 Keflex medicatio n Not available Not available Not available 02/28/2021 07146 7 RxNorm EMMANUEL Almaguer [address], [place], [address], [facility] 2 17:33:01 72643 Substance with sulfonami de structure and antibacte rial mechanism of action (substanc e) medicatio n Not available Not available Not available 02/28/2021 65988 8003 SNOMED Galdino Ramírez MD [address], [place], [address], [facility] 1 10:43:09 07408 metronida zole medicatio n Not available Not available Not available 01/16/2022 6922 RxNorm EMMANUEL Almaguer [address], [place], [address], [facility] 2 17:33:07 86731 levofloxa jaleel medicatio n Not available Not available Not available 06/11/2022 21536 RxNoEMMANUEL Summers [address], [place], [address], [facility] 3 17:40:47 Medications Name Sig Start Date Stop Date Status Note LastModified by Organization Details LastModified Time cyclobenz aprine 10 mg tablet 05/29 completed Not Available Not Available Not Available amoxicill in 500 mg capsule TAKE ONE CAPSULE BY MOUTH EVERY 8 HOURS UNTIL DONE 04/08 completed Not Available Not Available Not Available Mirena 21 mcg/24 hr (up to 8 years) 52 mg intrauter ine device Take by intraute rine route. 2021 active Not Available Not Available Not Avai lable buspirone 5 mg tablet TAKE 1 TABLET BY MOUTH TWICE DAILY 01/15 completed Not Available Not Available Not Available bupropion HCl SR 150 mg tablet,12 hr sustained -release 01/15 completed Not Available Not Available Not Available clonidine HCl 0.1 mg tablet 01/02 completed Not Available Not Available Not Available doxycycli ne hyclate 100 mg capsule TAKE 1 CAPSULE BY MOUTH TWICE DAILY FOR 7 DAYS 09/09 completed Not Available Not Available Not Available clindamyc in HCl 300 mg capsule TAKE 1 CAPSULE BY MOUTH EVERY 12 HOURS FOR 7 DAYS 06/01 completed Not Available Not Available Not Available azithromy jaleel 250 mg tablet 01/02 completed Not Available Not Available Not Available fosfomyci n trometham ine 3 gram oral packet DISSOLVE CONTENTS OF 1 PACKET WITH COOL WATER AND DRINK RIGHT AWAY active Not Available Not Available No t Available ibuprofen 800 mg tablet 08/24 completed Not Available Not Available Not Available nystatin 100,000 unit/gram topical ointment 08/24 completed Not Available Not Available Not Available fluconazo le 150 mg tablet TAKE 1 TABLET BY MOUTH NOW. REPEAT IN 7 DAYS IF SYMPTOMS PERSIST 06/01 completed Not Available Not Available Not Available hydrocodo ne 5 mg-acetam inophen 325 mg tablet TAKE 1 TABLET BY MOUTH EVERY 6 HOURS active Not Available Not Available No t Available ondansetr on HCl 8 mg tablet 01/02 completed Not Available Not Available Not Available fluconazo le 200 mg tablet TAKE 1 TABLET BY MOUTH EVERY 72 HOURS DIRECTED 08/24 completed Not Available Not Available Not Available metronida zole 0.75 % (37.5 mg/5 gram) vaginal gel INSERT 1 APPLICAT ORFUL VAGINALL Y EVERY DAY AT BEDTIME 03/02 completed Not Available Not Available Not Available prednison e 20 mg tablet 01/22 completed Not Available Not Available Not Available spironola ctone 100 mg tablet TAKE 1 TABLET BY MOUTH DAILY active Not Available Not Available No t Available metronida zole 500 mg tablet TAKE 1 TABLET BY MOUTH EVERY 8 HOURS FOR 10 DAYS 12/15 completed Not Available Not Available Not Available acetamino phen 300 mg-codein e 30 mg tablet 08/24 completed Not Available Not Available Not Available ciproflox acin 500 mg tablet TAKE 1 TABLET BY MOUTH EVERY 12 HOURS FOR 10 DAYS 11/26 completed Not Available Not Available Not Available sulfameth oxazole 800 mg-trimet hoprim 160 mg tablet take 1 tablet by oral route every 12 hours 01/02 completed Not Available Not Available Not Available quetiapin e 100 mg tablet TAKE 1 TABLET BY MOUTH TWICE DAILY 12/15 completed Not Available Not Available Not Available amitripty line 50 mg tablet 01/15 completed Not Available Not Available Not Available butalbita l-acetami nophen-ca ffeine 50 mg-325 mg-40 mg tablet 01/02 completed Not Available Not Available Not Available Macrobid 100 mg capsule Take 1 capsule every 12 hours by oral route. 02/27 completed nausea/v omiting/ headache Not Available Not Available Not Available nystatin- triamcino lone 100,000 unit/gram -0.1 % topical ointment 08/24 completed Not Available Not Available Not Available amoxicill in 875 mg tablet TAKE 1 TABLET BY MOUTH EVERY 12 HOURS FOR 10 DAYS 12/15 completed Not Available Not Available Not Available citalopra m 20 mg tablet 01/02 completed Not Available Not Available Not Available amitripty line 25 mg tablet TAKE 1 TABLET BY MOUTH AT BEDTIME 01/15 completed Not Available Not Available Not Available IBU 600 mg tablet 05/29 completed Not Available Not Available Not Available amitripty line 10 mg tablet 01/15 completed Not Available Not Available Not Available benzonata te 100 mg capsule TAKE 1 CAPSULE BY MOUTH THREE TIMES DAILY NEEDED 12/15 completed Not Available Not Available Not Available doxycycli ne monohydra te 100 mg capsule 01/02 completed Not Available Not Available Not Available cephalexi n 500 mg capsule 01/02 completed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 sentif pelvic pain returns, can schedule pelvic u/s for further evaluation - precaution s reviewedwi ll update pt with results when available Time spent in visit is a total of 30 mins with at least 50% of visit consisting of counseling and review of plan of care. Venereal d isease screening 101678116 Z11.3 Pain in pelvis 64900998 R10.2 Amenorrhea 49534078 N91. 2 [id number] EMMANUEL Almaguer [facility] [address],[facility] [address] 08/26/2023 10:29:59 08/26/2023 11:08:29 Gynecologic examination 52425768 Z01.419 WWEBC - mirena IUD, inserted 06/07/21pap updatedgc/ ct/trich testing added to paproutine labs/PCPRT C in 1 yr or sooner if needed Take Calcium with Vitamin D daily if not receiving in daily diet.It is strongly advised to have an annual flu shot and up can obtain at most pharmacies . If you have not had a TDap shot in the last 10 years you should obtain one as well. Discussed with patient & provided with informatio n regarding Gardisil vaccine to prevent the 4 strains for HPV that cause cervical cancer if under age 26.Encoura ge safe sexual practices, to use condoms and limit partners if not already in a monogamous relationsh ip.Do monthly self breast exams. BRCA testing is now available for patients with strong genetic history of female cancer. If interested contact the office. Engage in regular exercise. Avoid tobacco and illicit drugs. This lifestyle behavior pattern will lead to less health conditions and longer life span. If BMI greater than 25 dietary consult advised. Patient received above instructio ns, and questions have been answered. If you have any questions please call or respond to this email. Patient was made aware of the patient portal and may obtain a paper copy of today's plan if desired. Vaginitis 16750206 N76.0 suspect yeastrx sent, r/b/a reviewedvu lvar care guidelines discussed Venereal d isease screening 725113380 Z11.3 [id number] Kelley Fu CNM [facility] [address],[facility] [address] 11/27/2023 11:38:04 11/27/2023 12:36:51 Vaginitis 48020266 N76.0 continue vulvar care [id number] Martina Hess [facility] [address],[facility] [address] 02/11/2024 14:51:20 02/11/2024 15:23:30 Bacterial vaginosis 684420458 N76.0 [id number] Galdino Ramírez MD [facility] [address],[place] [address] 06/01/2024 14:08:12 06/01/2024 15:08:22 Cyst of ovary 41287118 N83.209 this patient is a 38-year-ol d female with ovarian cyst and pelvic pain who presents for ultrasound follow-up. She was sent for ultrasound by her primary care doctor for pelvic pain. She has history of ovarian cyst. She has a 2.5 cm ovarian cyst. Her pain is sharp, intermitte nt, present for a month and it is getting worse. Nothing is palliative , nothing is provocativ e. We discussed ovarian cyst, the etiology, natural history, treatment thereof. We discussed observatio n and surgical interventi on. We agreed to observatio n and repeat ultrasound 6 weeks. She will repeat ultrasound and follow-up after. We spent more than 20 minutes on her care in total. [id number] EMMANUEL Almaguer [facility] [address],[place] [address] 06/29/2024 09:56:04 06/29/2024 12:17:30 Urinary symptoms 060413663 R39.9 Ua done, cx sentrx sent for possible UTI - r/b/a reviewedav oid bladder irritantsv aginitis/S TI panel sentvulvar care guidelines discusseds cheduled for f/u u/s and consult with Dr. Ramírez - offered to move up these appointmen tsprecauti ons discussed Time spent in visit is a total of 25 mins with at least 50% of visit consisting of counseling and review of plan of care. Vaginal odor 009105812 N 89.8 Venereal d isease screening 226322549 Z11.3 Pain in pelvis 84963671 R10.2 [id number] Fern Rodriguez [facility] [address],[place] [address] 07/12/2024 11:04:31 07/12/2024 11:50:17 Cyst of right ovary [id number] [id number] N83.201 [id number] [facility] [address],[place] [address] 07/12/2024 11:18:25 07/13/2024 06:59:21 Pain in pelvis 58711452 R10.2 Cyst of ovary 41137429 N 83.209 38-year-ol d female with persistent right-side d pelvic pain and a large ovarian cyst. The cyst has been present for some time. We have agreed to perform laparoscop ic right ovarian cystectomy . We discussed the treatment in detail. We discussed her treatment options. I spent over 30 minutes on the patient's care in total. We agreed to perform surgery. I told her about the details of the surgery. The patient understand s the procedure. The procedure was described to the patient in great detail. the patient also understand s the risks. The risks were also explained in detail. She understand s that injuries May occur during surgery. She understand s these injuries can result in hospitaliz ation, more surgery, and severe illness. She understand s there is risk of hemorrhage and infection. We have agreed to proceed with the surgery. Health Concerns Section Related Observation LastModified by Organization Detai ls LastModified Time None Recorded Concern Status LastModified by Organization Details LastModified Time None Recorded Advance Directives Directive N: Payers Encounter Date Sequence Insurance Name Policy Number Policy Foss Covered Member ID Foss Member ID Guarantor Name 02/11/2024 1 [facility] ON OR AFTER 11/15/20 (MEDICAID REPLACEMENT - HMO) Eugenia Proctor [id number] Eugenia Proctor 06/01/2024 1 [facility] ON OR AFTER 11/15/20 (MEDICAID REPLACEMENT - HMO) Eugenia Proctor [id number] Eugenia Proctor 06/29/2024 1 [facility] ON OR AFTER 11/15/20 (MEDICAID REPLACEMENT - HMO) Eugenia Proctor [id number] Eugenia Proctor 07/12/2024 1 [facility] ON OR AFTER 11/15/20 (MEDICAID REPLACEMENT - HMO) Eugenia Proctor [id number] Eugenia Proctor 07/12/2024 1 [facility] ON OR AFTER 20 (MEDICAID REPLACEMENT - HMO) Eugenia Proctor [id number] Eugenia Proctor Notes Date Note Type Note Provider Name and Address Organization Details Recorded Time 5 text/html this patient is a 38-year-old female with ovarian cyst and pelvic pain who presents for ultrasound follow-up. She was sent for ultrasound by her primary care doctor for pelvic pain. She has history of ovarian cyst. She has a 2.5 cm ovarian cyst. Her pain is sharp, intermittent, present for a month and it is getting worse. Nothing is palliative, nothing is provocative. We discussed ovarian cyst, the etiology, natural history, treatment thereof. We discussed observation and surgical intervention. We agreed to observation and repeat ultrasound 6 weeks. She will repeat ultrasound and follow-up after. We spent more than 20 minutes on her care in total. Galdino Ramírez MD [address], [place], [address], [facility] 06/01/2024 15:07:21 5 text/html 38yopresents for bilateral lower pelvic pain/crampingpain/pres sure with urinationurine odorvaginal odorwhite dischargepain is worse with activity and urinationimproves with rest/heating pad/ibuprofenSA with steady male partnerfollowing with Dr. Ramírez for h/o ovarian cyst/pelvic pain - has repeat pelvic u/s coming up neg n/v/fneg flu-like symptomsneg itching EMMANUEL Almaguer [address], [place], [address], [facility] 06/29/2024 12:07:11 5 text/html 38-year-old female with persistent right-sided pelvic pain and a large ovarian cyst. The cyst has been present for some time. We have agreed to perform laparoscopic right ovarian cystectomy. We discussed the treatment in detail. We discussed her treatment options. I spent over 30 minutes on the patient's care in total. We agreed to perform surgery. I told her about the details of the surgery. The patient understands the procedure. The procedure was described to the patient in great detail. the patient also understands the risks. The risks were also explained in detail. She understands that injuries May occur during surgery. She understands these injuries can result in hospitalization, more surgery, and severe illness. She understands there is risk of hemorrhage and infection. Galdino Ramírez MD [address], [place], [address], [facility] 07/12/2024 22:45:32 OBGyn Episode Ob Episode Information Episode Created Date Number of Fetuses Patient Bloodtype Patient rh Status Prepregnancy Weight lbs Domestic Partner Domestic Partner Phone Father Name Dimpling Machine Operator Status 01/03/20 21 1 CLOSED Fetus Data First Name Last Name Admitted to NICU Weight (g) Sex Living Outcome Pediatric Complications Fetus ID Race Codes Race Delivery Type 2806.37 [id number] F Full Term [id number] Vaginal Delivery Jose Calculation Initial Jose Date Initial Exam Date Initial Exam Provider Initial Ultrasound Date Last Menstrual Period Date Ultra Sound Weeks Gestation 0 Eighteen To Twenty Week Jose Update Ultra Sound Date Fundal Height At Umbil Quickening Date Ultra Sound Latest Weeks Gestation Final Jose Confirmed By Final Joes Confirmed Date Final Jose Date Ultra Sound Latest Days Gestation 0 0 Menstrual History Last Menstrual Date Menses Monthly On Bcp Conception Prior Menses Frequency Hcg Plus Date Menarche Onset Age Delivery Information Delivery Date Delivery Type Labor Anesthesia Weeks Gestation Incision Type Labor Labor Length Hrs Delivered By Post Complications Tubal Sterilization Discharge Date Comments 6 38 Discharge Information Feeding Method Contraceptive Method Maternal HG B and HCT Levels
--- OUTSIDE RECORDS SUMMARY | 2024-08-03 00:28 | XMS_ITS | Referral Summary ---
Author Organization [facility] Address [address] [place] [address] Care Team Providers Care Viscosity Inspector Name Role Phone Davy Eugene Primary Care Provider [phone] Encounters Date Type Department Care Team Description 05/26/2024 3:14 PM STOCKROOM SELECTOR - 05/26/2024 11:59 PM STOCKROOM SELECTOR Hospital Encounter [facility] [address] [place] [address] Pelvic and perineal pain Discharge Disposition: Discharge [...] on file Legal Sex Female 11:49 PM STOCKROOM SELECTOR Gender Identity Not on file Sexual Orientation Not on file Last Filed Vital Signs Vital Sign Reading Time Taken Comments Blood Pressure 106/71 07/09/2023 2:06 PM STOCKROOM SELECTOR Pulse 97 07/09/2023 2:06 PM STOCKROOM SELECTOR Temperature 36.2 C (97.1 F) 07/09/2023 2:06 PM STOCKROOM SELECTOR Respiratory Rate 20 12/06/2019 4:48 PM CDT Oxygen Saturation 96% 07/09/2023 2:06 PM STOCKROOM SELECTOR Inhaled Oxygen Concentration - - Weight 64.4 kg (142 lb) 07/09/2023 2:06 PM STOCKROOM SELECTOR Height 165.1 cm (5' 5 ) 07/09/2023 2:06 PM STOCKROOM SELECTOR Body Mass Index 23.63 07/09/2023 2:06 PM STOCKROOM SELECTOR Plan of Treatment Not on file Procedures Procedure Name Priority Date/Time Associated Diagnosis Comments US PELVIS W ENDOVAGINAL Schedule Routine, Read Routine (OP Routine) 05/26/2024 4:23 PM STOCKROOM SELECTOR Pelvic and perineal pain HEPATITIS C RNA, QUANTITATIVE, PCR New Adm-Reg 09/30/2016 12:25 PM CDT from Last 3 Months or Most Recently Relevant to Health Maintenance Results * US Pelvis W Endovaginal (05/26/2024 4:23 PM STOCKROOM SELECTOR) Anatomical Region Laterality Modality Pelvis N/A Ultrasound 05/27/2024 3:39 PM STOCKROOM SELECTOR Narrative 05/27/2024 3:41 PM STOCKROOM SELECTOR EXAM DESCRIPTION: US PELVIS W ENDOVAGINAL REASON [...] Smitha Malave D.O. PS: PS Report ID: [id number] Reading Location: [id number] Procedure Note Smitha Malave, DO - 05/27/2024 [...] Smitha Malave D.O. PS: PS Report ID: [id number] Reading Location: [place] [address] [facility] US PROCEDURES Final Resul t * Hepatitis C RNA, quantitative, PCR (09/30/2016 12:25 PM CDT) Pathologist [facility] HCV RNA qn Undetected Undetected IUnits/mL [facility] ([facility]) Comment: Result in log IU/mL is Undetected. ADDITIONAL INFORMATION The quantification range of this assay is 15 to 100,000,000 IU/mL (1.18 log to 8.00 log IU/mL). Testing was performed by the [facility] AmpliPrep/BRITTNEY TaqMan HCV Test, version 2.0 ([employer] Test Performed by: [facility] - [address] [address] Blood specimen (specimen) 09/30/2016 12:25 PM CDT 09/30/2016 12:57 PM CDT Tesfaye Kumar MD LAB MICROBIOLOGY - GENERAL ORDERABLES Final Result [facility] ([place]) 1 [facility] Department [place] [address] from Last 3 Months or Most Recently Relevant to Health Maintenance Insurance [facility] Care Teams Viscosity Inspector Relationship Specialty Start Date End Date Davy Eugene PA [address] [place] [address] PCP - General 09/30/16
--- OUTSIDE RECORDS SUMMARY | 2024-08-03 00:28 | XMS_ITS | Clinical Summary ---
Author Organization [facility] Address [address] [place] [address] Care Team Providers Care Sand Drier Name Role Phone Davy Eugene Primary Care Provider [phone] Allergies Active Allergy Reactions Criticality Noted Date [...] Department Care Team Description 05/26/2024 3:14 PM DIRECTOR OF ENTERPRISE STRATEGY - 05/26/2024 11:59 PM DIRECTOR OF ENTERPRISE STRATEGY Hospital Encounter [facility] [address] [place] [address] Pelvic and perineal pain Discharge Disposition: Discharge [...] on file Legal Sex Female 11:49 PM DIRECTOR OF ENTERPRISE STRATEGY Gender Identity Not on file Sexual Orientation Not on file Obstetrics History Last Filed Vital Signs Vital Sign Reading Time Taken Comments Blood Pressure 106/71 07/09/2023 2:06 PM DIRECTOR OF ENTERPRISE STRATEGY Pulse 97 07/09/2023 2:06 PM DIRECTOR OF ENTERPRISE STRATEGY Temperature 36.2 C (97.1 F) 07/09/2023 2:06 PM DIRECTOR OF ENTERPRISE STRATEGY Respiratory Rate 20 12/06/2019 4:48 PM CDT Oxygen Saturation 96% 07/09/2023 2:06 PM DIRECTOR OF ENTERPRISE STRATEGY Inhaled Oxygen Concentration - - Weight 64.4 kg (142 lb) 07/09/2023 2:06 PM DIRECTOR OF ENTERPRISE STRATEGY Height 165.1 cm (5' 5 ) 07/09/2023 2:06 PM DIRECTOR OF ENTERPRISE STRATEGY Body Mass Index 23.63 07/09/2023 2:06 PM DIRECTOR OF ENTERPRISE STRATEGY Plan of Treatment Health Maintenance Due Date [...] Read Routine (OP Routine) 05/26/2024 4:23 PM DIRECTOR OF ENTERPRISE STRATEGY Pelvic and perineal pain HEPATITIS C RNA, QUANTITATIVE, PCR New Adm-Reg 09/30/2016 12:25 PM CDT from Last 3 Months or Most Recently Relevant to Health Maintenance Results * US Pelvis W Endovaginal (05/26/2024 4:23 PM DIRECTOR OF ENTERPRISE STRATEGY) Anatomical Region Laterality Modality Pelvis N/A Ultrasound 05/27/2024 3:39 PM DIRECTOR OF ENTERPRISE STRATEGY Narrative 05/27/2024 3:41 PM DIRECTOR OF ENTERPRISE STRATEGY EXAM DESCRIPTION: US PELVIS W ENDOVAGINAL REASON [...] Smitha Malave D.O. PS: PS Report ID: [id number] Reading Location: [id number] Procedure Note Smitha Malave, DO - 05/27/2024 [...] Smitha Malave D.O. PS: PS Report ID: [id number] Reading Location: [id number] us Davy [facility] PROCEDURES Final Resul t * Hepatitis C RNA, quantitative, PCR (09/30/2016 12:25 PM CDT) HCV RNA qn Undetected Undetected IUnits/mL [facility]IA [facility] ([place]) Comment: Result in log IU/mL is Undetected. ADDITIONAL INFORMATION The quantification range of this assay is 15 to 100,000,000 IU/mL (1.18 log to 8.00 log IU/mL). Testing was performed by the [facility] AmpliPrep/BRITTNEY TaqMan HCV Test, version 2.0 ([employer] Test Performed by: [place] [address] Blood specimen (specimen) 09/30/2016 12:25 PM CDT 09/30/2016 12:57 PM CDT Tesfaye Kumar MD LAB MICROBIOLOGY - GENERAL ORDERABLES Final Result SHAZIA [facility] ([place]) 1 [facility] [place] [address] from Last 3 Months or Most Recently Relevant to Health Maintenance Insurance [facility] [employer] Care Teams Sand Drier Relationship Specialty Start Date End Date Davy Eugene PA [address] [place] [address] PCP - General 09/30/16
[2024-08-03] MEDS: KETOROLAC 15 MG/ML VIAL (*BKC) IV PUSH (07:53)
[2024-08-03] MEDS: ACETAMINOPHEN 500 MG TABLET 1000 MG PO (07:53)
--- NOTE | 2024-08-03 09:05 | WPDHPUPDATE1 ---
History and Physical Update Update Date/Time: 08/03/24 09:05 History and Physical has been reviewed, including an updated exam of the patient. There are NO changes in the patient's condition. Risks, benefits, and alternatives have been discussed and questions answered. Patient agrees to proceed with procedure.
--- NOTE | 2024-08-03 09:06 | PM.IMHP ---
H&P: HPI History of Present Illness Date/Time: 08/03/24 09:06 Chief Complaint: Pelvic pain Narrative: This patient is a 38-year-old female with pelvic pain ovarian cyst. We agreed laparoscopic right ovarian cystectomy. She understands risks, benefits, and alternatives. She has completed informed consent process and is ready to proceed. The patient understands the details of the procedure. The procedure has been explained in detail. She understands the risks. She understands that injuries may occur that result in hospitalization, more surgery, and severe illness. She understands risk of hemorrhage and infection. She denies any chest pain or shortness of breath. She denies any nausea, vomiting, fever, chills. Review of Systems Review of Systems: All systems reviewed & are unremarkable except as noted in HPI and below Constitutional: Constitutional: Denies chills, Denies fatigue, Denies fever(s) and Denies weakness Eyes: Eyes: Denies blurry vision, Denies change in vision, Denies loss of peripheral vision, Denies loss of vision, Denies other visual disturbances and Denies eye pain ENT: Denies vertigo, Denies dizziness, Denies hearing loss, Denies mouth pain, Denies nasal obstruction, Denies neck mass and Denies neck pain Cardiovascular: Cardiovascular: Denies chest pain, Denies diaphoresis, Denies syncope, Denies leg edema and Denies dyspnea Respiratory: Respiratory: Denies chest congestion, Denies cough, Denies hemoptysis, Denies dyspnea and Denies wheezing Gastrointestinal: Gastrointestinal: Denies abdominal pain, Denies constipation, Denies diarrhea, Denies nausea and Denies vomiting Genitourinary: Genitourinary: Denies hematuria, Denies change in libido, Denies nocturia, Denies genital lesions, Denies flank pain and Denies urinary urgency Musculoskeletal: Musculoskeletal: Denies abnormal gait, Denies back pain, Denies myalgias, Denies arthralgias, Denies joint swelling, Denies muscle weakness and Denies neck pain Integumentary/Breasts: Skin/Breast: Denies swelling, Denies breast pain, Denies breast mass, Denies dry skin, Denies nipple discharge, Denies unusual bruising and Denies jaundice Neurologic: Denies Neuro-related abnormal movements, Denies Abnormal speech present, Denies abnormal gait, Denies behavioral changes, Denies confusion, Denies vertigo, Denies dizziness, Denies syncope, Denies loss of vision, Denies memory loss, Denies convulsions and Denies weakness Psychiatric: Psychiatric: Denies abnormal sleep pattern, Denies behavioral changes, Denies change in libido, Denies confusion, Denies depression, Denies anhedonia and Denies memory loss Endocrine: Endocrine: Reports no additional endocrine complaints, Denies change in libido and Denies fatigue Hematologic/Lymphatic: Hematologic/Lymphatic: Reports no additional hematologic/lymphatic complaints Allergic/Immunologic: Allergic/Immunologic: Reports no additional allergic/immunologic complaints and Denies wheezing PMFSH Past Medical History Medical History (Updated 08/03/24 @ 09:07 by Galdino Ramírez MD) Opioid dependence Dry tooth socket Family History Family History (System 12/31/23 @ 07:51 by Dave Griffith) Father Diabetes mellitus Family history of hypercholesterolemia Social History Social History (System 12/31/23 @ 07:51 by Dave Griffith) Smoking packs per day: 1 Smoking cigarettes per day: 20.0 Years smoked: 15 Smoking pack-years: 15.00 Smoking status: Current every day smoker Tobacco type: cigarettes and e-cigarettes/vaping Alcohol intake: never Substance use: former Substance use type: heroin Other substance usage details: USED HEROIN OFF AND ON FOR 6-7 YEARS---OFF METHADONE NOW Last use: 02/04/15 Living arrangements: with family Additional living arrangements comments: DAUGHTER Spiritual care concerns: No Meds Home Medications and Allergies Home Medications ?Medication ?Instructions ?Recorded ?Confirmed ?Type hydrocodone 5 mg-acetaminophen 325 1 - 2 tablet PO Q4H PRN pain #25 02/21/21 07/12/24 Rx mg tablet tabs escitalopram oxalate 10 mg tablet 10 mg PO DAILY 07/12/24 07/27/24 History progesterone micronized 100 mg 100 mg PO ONCE 07/12/24 07/12/24 History capsule spironolactone 100 mg tablet 100 mg PO HS 07/12/24 07/12/24 History Allergies Allergy/AdvReac Type Severity Reaction Status Date / Time cephalexin (From Keflex) Allergy Nausea Verified 08/03/24 07:49 Sulfa (Sulfonamide Allergy TOUNGUE Verified 08/03/24 07:49 Antibiotics) Swelling, RASH WITH BUMPS sulfamethoxazole (From Allergy Rash Verified 08/03/24 07:49 Bactrim) trimethoprim (From Bactrim) Allergy Rash Verified 08/03/24 07:49 Vital Signs Vital Signs - 24 hr 08/03/24 07:50 Temperature 98 F Pulse Rate 75 Blood Pressure 112/74 Pulse Oximetry 99 Oxygen Delivery Room Air Exam Const: General: cooperative, healthy appearing, comfortable and no acute distress Orientation/consciousness: oriented to person, oriented to place and oriented to time HENMT: Head: normal to inspection Ears: external ears normal Face/Nose/Sinus: Normal external nose present and normal facial exam Face and sinus: normal facial exam Eyes: General: appearance normal, both eyes and all related structures Neck: Neck: normal visual inspection, trachea midline and supple Resp: Auscultation: clear to auscultation bilaterally, no crackles, no rales, no rhonchi and no wheezes Cardio: Rate: regular rate Rhythm: regular rhythm Heart sounds: no click, no murmurs and no rubs GI: GI Palp: No abdominal tenderness, No Soft to palpation, No Tenderness to palpation present (GI) and No Palpable mass present Auscultation: normal bowel sounds Skin: General skin exam: normal color and no rashes or lesions noted Neuro: General: oriented to person, oriented to place and oriented to time Extrem: General: normal to inspection, no joint enlargement, no clubbing, cyanosis or edema, no pedal edema and no calf tenderness Psych: Appearance: grossly normal Mental Status: mental status grossly normal Speech and movement: Normal speech and movement present Assessment and Plan Assessment and plan (1) Pelvic pain: Code(s): R10.2 - Pelvic and perineal pain Status: Acute (2) Ovarian cyst: Code(s): N83.209 - Unspecified ovarian cyst, unspecified side Status: Acute Plan This patient is a 38-year-old female with pelvic pain ovarian cyst. We agreed laparoscopic right ovarian cystectomy. She understands risks, benefits, and alternatives. She has completed informed consent process and is ready to proce
--- NOTE | 2024-08-03 09:13 | P.PNAN_ITS ---
Anes - Initial Pre Proc Eval Procedure: Operation Date: 08/03/24 09:00 Proposed Procedures p Laparoscopic Right Ovarian Cystectomy - Galdino Ramírez MD Date/Time: 08/03/24 09:13 Surgeon: Galdino Ramírez MD Pre Op Diagnosis: cyst right ovary Patient Data Age: 38 Gender: F Height: 1.65 m Weight: 71 kg Last Vital Signs Temp 36.6 C 08/03/24 07:50 Pulse 75 08/03/24 07:50 BP 112/74 08/03/24 07:50 Pulse Ox 99 08/03/24 07:50 O2 Del Method Room Air 08/03/24 07:50 Allergies Allergy/AdvReac Type Severity Reaction Status Date / Time cephalexin (From Keflex) Allergy Nausea Verified 08/03/24 07:49 Sulfa (Sulfonamide Allergy TOUNGUE Verified 08/03/24 07:49 Antibiotics) Swelling, RASH WITH BUMPS sulfamethoxazole (From Allergy Rash Verified 08/03/24 07:49 Bactrim) trimethoprim (From Bactrim) Allergy Rash Verified 08/03/24 07:49 Home Medications ?Medication ?Instructions ?Recorded ?Confirmed ?Type hydrocodone 5 mg-acetaminophen 325 1 - 2 tablet PO Q4H PRN pain #25 02/21/21 07/12/24 Rx mg tablet tabs escitalopram oxalate 10 mg tablet 10 mg PO DAILY 07/12/24 07/27/24 History progesterone micronized 100 mg 100 mg PO ONCE 07/12/24 07/12/24 History capsule spironolactone 100 mg tablet 100 mg PO HS 07/12/24 07/12/24 History Patient hx anesthesia problems: none Family hx anesthesia problems: none Results Review: All pre-operative results and documents have been reviewed as part of the pre- operative evaluation. [facility] Past Medical History Medical History Opioid dependence Dry tooth socket Family History Family History Father Diabetes mellitus Family history of hypercholesterolemia Social History Social History Smoking packs per day: 1 Smoking cigarettes per day: 20.0 Years smoked: 15 Smoking pack-years: 15.00 Smoking status: Current every day smoker Tobacco type: cigarettes and e-cigarettes/vaping Alcohol intake: never Substance use: former Substance use type: heroin Other substance usage details: USED HEROIN OFF AND ON FOR 6-7 YEARS---OFF METHADONE NOW Last use: 02/04/15 Living arrangements: with family Additional living arrangements comments: DAUGHTER Spiritual care concerns: No Anes - Eval Final PreProcedure Day of Procedure 08/03/24 09:13 Patient weight: overweight Heart: regular rate and rhythm Lungs: clear to auscultation Airway: Mallampati scale class II Neurological: alert and oriented Last oral intake: >/= 8 hours ASA classification: III Emergent: no Anesthetic plan: proceed Anesthesia type and monitoring: general ETT and standard monitoring Results Review: All pre-operative results and documents have been reviewed as part of the pre- operative evaluation. Informed Consent: The patient's anesthetic plan and its attendant risks and benefits were discussed with the patient/family/POA. Questions were solicited and answers provided to the satisfaction of the patient/family/POA.
[2024-08-03] MEDS: LACTATED RINGERS 1,000 ML 30 ML IV CONT (09:19)
--- NOTE | 2024-08-03 10:20 | W.PM.PROC2 ---
Procedure Note - Detailed Date of Procedure 08/03/24 Pre-op Diagnosis cyst right ovary Post-op Diagnosis Same (Bilateral ovarian cysts) Procedure Performed Laparoscopic right oophorectomy and left ovarian cystectomy. Surgeon Galdino Ramírez MD Anesthesia General Indications Pelvic pain Findings Bilateral ovarian cysts, worrisome appearance on the right side, otherwise normal pelvic anatomy Description of Procedure The patient was taken to the operating room. She was prepped and draped in the dorsal lithotomy position after induction general anesthesia. A 5 mm incision was made with a scalpel on the abdominal skin in the left upper quadrant of the abdomen. A 5 mm trocar was inserted into the intra-abdominal cavity under direct visualization the scope. In the same fashion a 11 mm left lower quadrant trocar was inserted and a 11mm infraumbilical trocar was inserted. Left ovarian cyst was lysed and cauterized with LigaSure cautery. The right ovary is removed with cautery and dissection. It was placed in endobag and taken out through the left lower quadrant trocar site. The pelvis was irrigated. The pneumoperitoneum was reduced. The trocars were removed. Skin was closed with subcuticular 4 micro. The patient's incisions were covered with Dermabond. She was taken recovery room in stable condition. Sponge lap and needle counts were correct x2. Estimated Blood Loss 10 Complications No immediate complications Condition Stable Disposition Same day
[2024-08-03] MEDS: fentaNYL CITRATE INJ (*CRX) 100 MCG/2 ML VIAL 25 MCG IV PUSH ×4 (10:26→10:42)
[2024-08-03] MEDS: oxyCODONE HCL (*CRX) 5 MG TAB IR PO (11:17)
--- NOTE | 2024-08-03 11:48 | SUR.PHASEII ---
Patient's vitals are stable. Patient is unhooked from monitors and dressed. We are waiting for Dr. Ramírez to send prescription to different pharmacy.
== END 2024-08-03 11:59 | disposition home or self-care (01) ==
PROVIDERS: PCP Physician Assistant; Visit Provider Obstetrics & Gynecology
PROC: (CPT 49320; principal; 2024-08-03 09:00)
DX: D27.0 Benign neoplasm of right ovary (principal); N80.101 Endometriosis of right ovary, unspecified depth; F17.210 Nicotine dependence, cigarettes, uncomplicated; F17.290 Nicotine dependence, other tobacco product, uncomplicated
CPT/HCPCS: 58661; 58662; 88305; A9270; J1100; J1885; J2250; J2270; J2405; J2704; J3010; J7030; J7120